=== PATIENT | male | born 1975 | race Caucasian/White ===

== ENCOUNTER 2023-02-16 13:05 | Inpatient (IN) | payer OTHER ==
[~2023-02-16] VITALS: Ht 172.7 cm; Wt 84.1 kg
[2023-02-16 13:57] LABS: BASOPHILS % (AUTO) 0.3 % (0.0-2.0); EOSINOPHILS # (AUTO) 0.6 K/uL (0.0-0.7); EOSINOPHILS % (AUTO) 12.2 % (0.0-6.0); HEMATOCRIT 42 % (39-51); HEMOGLOBIN 13.7 g/dL (13.5-17.5); LYMPHOCYTES # (AUTO) 1.4 K/uL (0.8-4.8); LYMPHOCYTES % (AUTO) 27.3 % (20.0-44.0); MEAN CORPUSCULAR HEMOGLOBIN 27 PG (26.0-33.0); MEAN CORPUSCULAR HGB CONC 33 g/dl (31.0-36.0); MEAN CORPUSCULAR VOLUME 81 fL (80-96); MONOCYTES # (AUTO) 0.5 K/uL (0.1-1.30); MONOCYTES % (AUTO) 9.5 % (2.0-12.0); NEUTROPHILS # (AUTO) 2.7 K/uL (1.8-8.9); NEUTROPHILS % (AUTO) 50.7 % (43.0-81.0); PLATELET COUNT (AUTO) 230 K/uL (150-450); RED BLOOD CELL COUNT(AUTO) 5.16 MIL/uL (4.5-6.0); WHITE BLOOD COUNT (AUTO) 5.2 K/uL (4.3-11.0)
[2023-02-16] MEDS ORDERED: ZOLP5TAB2 PO (13:57)
[2023-02-16] MEDS ORDERED: ACET-2605 PO (13:57)
[2023-02-16] MEDS ORDERED: DEXT15DR6 EACHEYE ×2 (13:57)
[2023-02-16] MEDS ORDERED: ACET-868 PO (13:57)
[2023-02-16] MEDS ORDERED: DOCU100T2 PO (13:58)
[2023-02-16] MEDS ORDERED: LEVE500T20 PO (13:58)
[2023-02-16] MEDS ORDERED: FENO145T PO (13:58)
[2023-02-16] MEDS ORDERED: MULT-213 PO (13:58)
[2023-02-16] MEDS ORDERED: ONDA4TAB5 PO (13:58)
[2023-02-16] MEDS ORDERED: MELA3TAB41 PO (13:58)
[2023-02-16] MEDS ORDERED: LORA-259 PO (13:58)
[2023-02-16] MEDS ORDERED: METO25TA4 PO (13:58)
[2023-02-16] MEDS ORDERED: AMLO10TA4 PO (13:58)
[2023-02-16] MEDS ORDERED: NA P133E RC (13:58)
[2023-02-16] MEDS ORDERED: QUET200T PO (13:58)
[2023-02-16] MEDS ORDERED: BENZ1TAB7 PO (13:58)
[2023-02-16] MEDS ORDERED: CHOL200059 PO (13:58)
[2023-02-16] MEDS ORDERED: MAGN400O6 PO (13:58)
[2023-02-16] MEDS ORDERED: CALC-494 PO (13:58)
[2023-02-16 14:13] LABS: APPEARANCE,URINE CLEAR (CLEAR); BILIRUBIN,URINE NEGATIVE (NEGATIVE); BLOOD, URINE NEGATIVE Ery/uL (NEGATIVE); COLOR,URINE YELLOW (YELLOW); KETONES,URINE NEGATIVE (NEGATIVE); LEUKOCYTE ESTERASE ,URINE NEGATIVE (NEGATIVE); NITRITE, URINE NEGATIVE (NEGATIVE); PROTEIN,URINE NEGATIVE (NEGATIVE); UGLUCOSE NEGATIVE (NEGATIVE); UROBILINOGEN,URINE 0.2 EU/dL (0.2)
[2023-02-16 14:22] LABS: ALBUMIN 4.5 g/dL (3.4-5.0); BILIRUBIN,DIRECT 0.1 mg/dL (0.0-0.2); BILIRUBIN,TOTAL 0.3 mg/dL (0.2-1.0); CALCIUM, SERUM 9.6 mg/dL (8.5-10.1); CREATININE 0.9 mg/dL (0.6-1.3); POTASSIUM 3.6 mmol/L (3.5-5.1); TOTAL PROTEIN, SERUM 7.9 g/dL (6.4-8.2)
[2023-02-16] MEDS ORDERED: OLANZAPINE 10 MG VIAL IM ONE ×2 (15:27→15:30)
[2023-02-16] MEDS ORDERED: ZOLPIDEM TARTRATE 5 MG TABLET PO PRN ×2 (16:30→17:00)
[2023-02-16] MEDS ORDERED: ACETAMINOPHEN 325 MG TABLET PO PRN ×2 (16:30→17:00)
[2023-02-16] MEDS ORDERED: NA PHOS,M-B/NA PHOS,DI-BA 1 EA ENEMA RC PRN (16:30)
[2023-02-16] MEDS ORDERED: MAGNESIUM HYDROXIDE 30 ML UDC PO PRN ×2 (16:30→17:00)
[2023-02-16] MEDS ORDERED: ACETAMINOPHEN ES 500 MG TABLET PO PRN (16:30)
[2023-02-16] MEDS ORDERED: Z GUARD REMEDY 4 OZ OINT TP PRN (17:00)
[2023-02-16] MEDS ORDERED: ONDANSETRON HCL/PF 4 MG/2 ML VIAL IVP PRN (17:00)
[2023-02-16] MEDS ORDERED: CALCIUM CARBONATE 500 MG TAB.CHEW PO PRN (17:00)
[2023-02-16] MEDS ORDERED: IV NS 0.9% 1,000 ML IV PRN (17:00)
[2023-02-16] MEDS ORDERED: MAG HYDROX/AL HYDROX/SIMETH 30 ML UDC PO PRN (17:00)
[2023-02-16 17:33] LABS: AMPHETAMINE, URINE NEGATIVE (NEGATIVE); BARBITURATE, URINE NEGATIVE (NEGATIVE); BENZODIAZEPINE, URINE NEGATIVE (NEGATIVE); CANNABINOID, URINE NEGATIVE (NEGATIVE); COCCAINE, URINE NEGATIVE (NEGATIVE); OPIATE, URINE NEGATIVE (NEGATIVE); PHENCYCLIDINE SCREEN,URINE NEGATIVE (NEGATIVE)
[2023-02-16] MEDS: LORAZEPAM 1 MG TABLET PO SCH (18:35)
[2023-02-16] MEDS: BENZTROPINE MESYLATE (1 MG) 1 MG TABLET PO SCH (18:35)
[2023-02-16] MEDS: QUETIAPINE FUMARATE 100 MG TABLET PO SCH (18:36)
[2023-02-16 20:00] VITALS: BP 102/79; TEMP 97.3; O2SAT 92
[2023-02-16] MEDS: LEVETIRACETAM (250 MG) 250 MG TABLET PO SCH (20:57)
[2023-02-16] MEDS: DOCUSATE SODIUM 100 MG CAPSULE PO SCH (20:57)
[2023-02-16] MEDS: POLYVINYL ALCOHOL 15 ML BOTTLE EACHEYE SCH (21:00)
[2023-02-17 06:49] LABS: BASOPHILS % (AUTO) 1.1 % (0.0-2.0); EOSINOPHILS # (AUTO) 0.7 K/uL (0.0-0.7); EOSINOPHILS % (AUTO) 16.1 % (0.0-6.0); HEMATOCRIT 38 % (39-51); HEMOGLOBIN 12.8 g/dL (13.5-17.5); LYMPHOCYTES # (AUTO) 1.4 K/uL (0.8-4.8); LYMPHOCYTES % (AUTO) 33.7 % (20.0-44.0); MEAN CORPUSCULAR HEMOGLOBIN 27 PG (26.0-33.0); MEAN CORPUSCULAR HGB CONC 34 g/dl (31.0-36.0); MEAN CORPUSCULAR VOLUME 80 fL (80-96); MONOCYTES # (AUTO) 0.4 K/uL (0.1-1.30); MONOCYTES % (AUTO) 9.2 % (2.0-12.0); NEUTROPHILS # (AUTO) 1.7 K/uL (1.8-8.9); NEUTROPHILS % (AUTO) 39.9 % (43.0-81.0); PLATELET COUNT (AUTO) 208 K/uL (150-450); RED BLOOD CELL COUNT(AUTO) 4.75 MIL/uL (4.5-6.0); WHITE BLOOD COUNT (AUTO) 4.1 K/uL (4.3-11.0)
[2023-02-17 07:01] LABS: CALCIUM, SERUM 9.2 mg/dL (8.5-10.1); CREATININE 0.9 mg/dL (0.6-1.3); MAGNESIUM 1.9 mg/dL (1.8-2.4); PHOSPHORUS 3.7 mg/dL (2.5-4.9); POTASSIUM 3.4 mmol/L (3.5-5.1)
[2023-02-17 08:00] VITALS: BP 115/81; TEMP 98.2; O2SAT 97
[2023-02-17] MEDS: LORAZEPAM 1 MG TABLET PO SCH ×2 (08:19→16:37)
[2023-02-17] MEDS: LEVETIRACETAM (250 MG) 250 MG TABLET PO SCH ×2 (08:20→21:22)
[2023-02-17] MEDS: QUETIAPINE FUMARATE 100 MG TABLET PO SCH ×3 (08:20→16:37)
[2023-02-17] MEDS: BENZTROPINE MESYLATE (1 MG) 1 MG TABLET PO SCH ×2 (08:20→16:37)
[2023-02-17] MEDS: FENOFIBRATE NANOCRYS (145 MG) 145 MG TABLET PO SCH (08:20)
[2023-02-17] MEDS: CHOLECALCIFEROL 1,000 UNIT TABLET (VIT D3) PO SCH (08:20)
[2023-02-17] MEDS: DOCUSATE SODIUM 100 MG CAPSULE PO SCH ×2 (08:20→21:22)
[2023-02-17] MEDS: AMLODIPINE BESYLATE 10 MG TABLET PO SCH (08:20)
[2023-02-17] MEDS: POLYVINYL ALCOHOL 15 ML BOTTLE EACHEYE SCH ×2 (08:23→21:23)
[2023-02-17] MEDS: MULTIVIT W/MINERALS 1 TAB TABLET PO SCH (08:23)
[2023-02-17] MEDS: METOPROLOL SUCCINATE 25 MG TAB.SR.24H PO SCH (08:24)
[2023-02-17] MEDS ORDERED: POTASSIUM CHLORIDE 20 MEQ TAB.PRT.SR PO SCH (11:30)
[2023-02-17 16:00] VITALS: BP 117/81; TEMP 98.4; O2SAT 98
[2023-02-17 20:00] VITALS: BP 102/77; TEMP 97.8; O2SAT 98
[2023-02-18 06:17] LABS: BASOPHILS # (AUTO) 0.1 K/uL (0.0-0.2); BASOPHILS % (AUTO) 1.2 % (0.0-2.0); EOSINOPHILS # (AUTO) 0.6 K/uL (0.0-0.7); EOSINOPHILS % (AUTO) 14.6 % (0.0-6.0); HEMATOCRIT 40 % (39-51); HEMOGLOBIN 13.1 g/dL (13.5-17.5); LYMPHOCYTES # (AUTO) 1.3 K/uL (0.8-4.8); MEAN CORPUSCULAR HEMOGLOBIN 27 PG (26.0-33.0); MEAN CORPUSCULAR HGB CONC 33 g/dl (31.0-36.0); MEAN CORPUSCULAR VOLUME 80 fL (80-96); MONOCYTES # (AUTO) 0.4 K/uL (0.1-1.30); MONOCYTES % (AUTO) 10.2 % (2.0-12.0); NEUTROPHILS # (AUTO) 1.9 K/uL (1.8-8.9); PLATELET COUNT (AUTO) 213 K/uL (150-450); RED BLOOD CELL COUNT(AUTO) 4.96 MIL/uL (4.5-6.0); RED CELL DISTRIBUTION WIDTH 13.1 % (11.5-15.0); WHITE BLOOD COUNT (AUTO) 4.3 K/uL (4.3-11.0)
[2023-02-18 07:00] VITALS: BP 114/85; TEMP 97.7; O2SAT 99
[2023-02-18 07:52] LABS: CALCIUM, SERUM 9.2 mg/dL (8.5-10.1); CREATININE 0.9 mg/dL (0.6-1.3); POTASSIUM 3.8 mmol/L (3.5-5.1)
[2023-02-18] MEDS: MULTIVIT W/MINERALS 1 TAB TABLET PO SCH (09:21)
[2023-02-18] MEDS: CHOLECALCIFEROL 1,000 UNIT TABLET (VIT D3) PO SCH (09:21)
[2023-02-18] MEDS: BENZTROPINE MESYLATE (1 MG) 1 MG TABLET PO SCH ×2 (09:21→17:50)
[2023-02-18] MEDS: LORAZEPAM 1 MG TABLET PO SCH ×2 (09:21→17:50)
[2023-02-18] MEDS: LEVETIRACETAM (250 MG) 250 MG TABLET PO SCH ×2 (09:21→20:17)
[2023-02-18] MEDS: METOPROLOL SUCCINATE 25 MG TAB.SR.24H PO SCH (09:22)
[2023-02-18] MEDS: FENOFIBRATE NANOCRYS (145 MG) 145 MG TABLET PO SCH (09:22)
[2023-02-18] MEDS: QUETIAPINE FUMARATE 100 MG TABLET PO SCH ×3 (09:22→17:50)
[2023-02-18] MEDS: DOCUSATE SODIUM 100 MG CAPSULE PO SCH ×2 (09:22→20:17)
[2023-02-18] MEDS: AMLODIPINE BESYLATE 10 MG TABLET PO SCH (09:23)
[2023-02-18] MEDS: POLYVINYL ALCOHOL 15 ML BOTTLE EACHEYE SCH ×2 (09:23→20:18)
[2023-02-18 16:00] VITALS: BP 98/79; TEMP 97.6; O2SAT 98
[2023-02-18 20:00] VITALS: BP 93/80; TEMP 97.5; O2SAT 96
[2023-02-19 07:30] VITALS: BP 103/81; TEMP 97.7; O2SAT 96
[2023-02-19] MEDS: DOCUSATE SODIUM 100 MG CAPSULE PO SCH ×2 (08:27→20:28)
[2023-02-19] MEDS: MULTIVIT W/MINERALS 1 TAB TABLET PO SCH (08:27)
[2023-02-19] MEDS: CHOLECALCIFEROL 1,000 UNIT TABLET (VIT D3) PO SCH (08:27)
[2023-02-19] MEDS: LORAZEPAM 1 MG TABLET PO SCH ×2 (08:27→16:46)
[2023-02-19] MEDS: LEVETIRACETAM (250 MG) 250 MG TABLET PO SCH ×2 (08:27→20:28)
[2023-02-19] MEDS: QUETIAPINE FUMARATE 100 MG TABLET PO SCH ×3 (08:28→16:46)
[2023-02-19] MEDS: AMLODIPINE BESYLATE 10 MG TABLET PO SCH (08:28)
[2023-02-19] MEDS: METOPROLOL SUCCINATE 25 MG TAB.SR.24H PO SCH (08:30)
[2023-02-19] MEDS: BENZTROPINE MESYLATE (1 MG) 1 MG TABLET PO SCH ×2 (08:39→16:46)
[2023-02-19] MEDS: FENOFIBRATE NANOCRYS (145 MG) 145 MG TABLET PO SCH (08:46)
[2023-02-19] MEDS: POLYVINYL ALCOHOL 15 ML BOTTLE EACHEYE SCH ×2 (09:17→20:28)
[2023-02-19 20:00] VITALS: BP 106/76; TEMP 97.8; O2SAT 96
[2023-02-20 08:00] VITALS: BP 108/76; TEMP 97.3; O2SAT 99
[2023-02-20] MEDS: AMLODIPINE BESYLATE 10 MG TABLET PO SCH (09:00)
[2023-02-20] MEDS: LORAZEPAM 1 MG TABLET PO SCH ×2 (09:23→17:50)
[2023-02-20] MEDS: FENOFIBRATE NANOCRYS (145 MG) 145 MG TABLET PO SCH (09:24)
[2023-02-20] MEDS: LEVETIRACETAM (250 MG) 250 MG TABLET PO SCH ×2 (09:24→21:36)
[2023-02-20] MEDS: CHOLECALCIFEROL 1,000 UNIT TABLET (VIT D3) PO SCH (09:24)
[2023-02-20] MEDS: METOPROLOL SUCCINATE 25 MG TAB.SR.24H PO SCH (09:24)
[2023-02-20] MEDS: MULTIVIT W/MINERALS 1 TAB TABLET PO SCH (09:25)
[2023-02-20] MEDS: DOCUSATE SODIUM 100 MG CAPSULE PO SCH ×2 (09:25→21:36)
[2023-02-20] MEDS: BENZTROPINE MESYLATE (1 MG) 1 MG TABLET PO SCH ×2 (09:25→17:50)
[2023-02-20] MEDS: QUETIAPINE FUMARATE 100 MG TABLET PO SCH ×3 (09:26→17:50)
[2023-02-20] MEDS: POLYVINYL ALCOHOL 15 ML BOTTLE EACHEYE SCH ×2 (09:27→21:36)
[2023-02-20 16:00] VITALS: BP 98/57; TEMP 97.4; O2SAT 97
[2023-02-20 20:00] VITALS: BP 95/62; TEMP 97.7; O2SAT 96
[2023-02-21 08:00] VITALS: BP 98/75; TEMP 97.9; O2SAT 98
[2023-02-21] MEDS: FENOFIBRATE NANOCRYS (145 MG) 145 MG TABLET PO SCH (08:43)
[2023-02-21] MEDS: BENZTROPINE MESYLATE (1 MG) 1 MG TABLET PO SCH ×2 (08:43→16:12)
[2023-02-21] MEDS: MULTIVIT W/MINERALS 1 TAB TABLET PO SCH (08:43)
[2023-02-21] MEDS: QUETIAPINE FUMARATE 100 MG TABLET PO SCH ×3 (08:43→16:17)
[2023-02-21] MEDS: CHOLECALCIFEROL 1,000 UNIT TABLET (VIT D3) PO SCH (08:43)
[2023-02-21] MEDS: LEVETIRACETAM (250 MG) 250 MG TABLET PO SCH ×2 (08:43→21:05)
[2023-02-21] MEDS: DOCUSATE SODIUM 100 MG CAPSULE PO SCH ×2 (08:43→21:05)
[2023-02-21] MEDS: LORAZEPAM 1 MG TABLET PO SCH ×2 (08:45→16:12)
[2023-02-21] MEDS: AMLODIPINE BESYLATE 10 MG TABLET PO SCH (08:45)
[2023-02-21] MEDS: POLYVINYL ALCOHOL 15 ML BOTTLE EACHEYE SCH ×2 (08:45→21:05)
[2023-02-21] MEDS: METOPROLOL SUCCINATE 25 MG TAB.SR.24H PO SCH (08:45)
[2023-02-21 16:00] VITALS: BP 105/76; TEMP 97.5; O2SAT 98
[2023-02-21 20:00] VITALS: BP 106/78; TEMP 97.7; O2SAT 98
[2023-02-22 08:00] VITALS: BP 119/84; TEMP 98.3; O2SAT 98
[2023-02-22] MEDS: QUETIAPINE FUMARATE 100 MG TABLET PO SCH ×3 (08:37→16:55)
[2023-02-22] MEDS: CHOLECALCIFEROL 1,000 UNIT TABLET (VIT D3) PO SCH (08:37)
[2023-02-22] MEDS: LORAZEPAM 1 MG TABLET PO SCH ×2 (08:37→16:55)
[2023-02-22] MEDS: LEVETIRACETAM (250 MG) 250 MG TABLET PO SCH ×2 (08:37→20:10)
[2023-02-22] MEDS: DOCUSATE SODIUM 100 MG CAPSULE PO SCH ×2 (08:38→20:10)
[2023-02-22] MEDS: BENZTROPINE MESYLATE (1 MG) 1 MG TABLET PO SCH ×2 (08:38→16:55)
[2023-02-22] MEDS: MULTIVIT W/MINERALS 1 TAB TABLET PO SCH (08:38)
[2023-02-22] MEDS: AMLODIPINE BESYLATE 10 MG TABLET PO SCH (08:38)
[2023-02-22] MEDS: FENOFIBRATE NANOCRYS (145 MG) 145 MG TABLET PO SCH (08:38)
[2023-02-22] MEDS: METOPROLOL SUCCINATE 25 MG TAB.SR.24H PO SCH (08:39)
[2023-02-22] MEDS: POLYVINYL ALCOHOL 15 ML BOTTLE EACHEYE SCH ×2 (09:02→20:10)
[2023-02-22 16:00] VITALS: BP 104/73; TEMP 100; O2SAT 99
[2023-02-22 20:00] VITALS: BP 112/74; TEMP 98.2; O2SAT 95
[2023-02-23 07:00] VITALS: BP 100/76; TEMP 98.6; O2SAT 95
[2023-02-23] MEDS: POLYVINYL ALCOHOL 15 ML BOTTLE EACHEYE SCH ×2 (08:42→21:44)
[2023-02-23] MEDS: DOCUSATE SODIUM 100 MG CAPSULE PO SCH ×2 (08:43→21:43)
[2023-02-23] MEDS: QUETIAPINE FUMARATE 100 MG TABLET PO SCH ×3 (08:43→17:24)
[2023-02-23] MEDS: FENOFIBRATE NANOCRYS (145 MG) 145 MG TABLET PO SCH (08:43)
[2023-02-23] MEDS: LORAZEPAM 1 MG TABLET PO SCH ×2 (08:43→17:24)
[2023-02-23] MEDS: CHOLECALCIFEROL 1,000 UNIT TABLET (VIT D3) PO SCH (08:43)
[2023-02-23] MEDS: BENZTROPINE MESYLATE (1 MG) 1 MG TABLET PO SCH ×2 (08:43→17:24)
[2023-02-23] MEDS: MULTIVIT W/MINERALS 1 TAB TABLET PO SCH (08:43)
[2023-02-23] MEDS: LEVETIRACETAM (250 MG) 250 MG TABLET PO SCH ×2 (08:43→21:44)
[2023-02-23] MEDS: AMLODIPINE BESYLATE 10 MG TABLET PO SCH (08:55)
[2023-02-23] MEDS: METOPROLOL SUCCINATE 25 MG TAB.SR.24H PO SCH (08:56)
[2023-02-23 16:00] VITALS: BP 91/71; TEMP 97.5; O2SAT 94
[2023-02-24 08:00] VITALS: BP 100/73; TEMP 98.2; O2SAT 97
[2023-02-24] MEDS: LORAZEPAM 1 MG TABLET PO SCH ×2 (08:46→16:32)
[2023-02-24] MEDS: POLYVINYL ALCOHOL 15 ML BOTTLE EACHEYE SCH ×2 (08:46→20:58)
[2023-02-24] MEDS: MULTIVIT W/MINERALS 1 TAB TABLET PO SCH (08:47)
[2023-02-24] MEDS: AMLODIPINE BESYLATE 10 MG TABLET PO SCH (08:47)
[2023-02-24] MEDS: METOPROLOL SUCCINATE 25 MG TAB.SR.24H PO SCH (08:47)
[2023-02-24] MEDS: DOCUSATE SODIUM 100 MG CAPSULE PO SCH ×2 (08:47→20:58)
[2023-02-24] MEDS: LEVETIRACETAM (250 MG) 250 MG TABLET PO SCH ×2 (08:47→20:58)
[2023-02-24] MEDS: BENZTROPINE MESYLATE (1 MG) 1 MG TABLET PO SCH ×2 (08:47→16:32)
[2023-02-24] MEDS: QUETIAPINE FUMARATE 100 MG TABLET PO SCH ×3 (08:47→16:32)
[2023-02-24] MEDS: CHOLECALCIFEROL 1,000 UNIT TABLET (VIT D3) PO SCH (08:47)
[2023-02-24] MEDS: FENOFIBRATE NANOCRYS (145 MG) 145 MG TABLET PO SCH (08:47)
[2023-02-24 16:00] VITALS: BP 98/52; TEMP 97.6; O2SAT 98
[2023-02-24 19:00] VITALS: BP 104/77; TEMP 97.2; O2SAT 96
[2023-02-24 20:00] VITALS: BP 104/77; TEMP 97.2; O2SAT 96
[2023-02-25 07:30] VITALS: BP 105/71; TEMP 97.9; O2SAT 95
[2023-02-25] MEDS: LORAZEPAM 1 MG TABLET PO SCH ×2 (08:17→16:07)
[2023-02-25] MEDS: CHOLECALCIFEROL 1,000 UNIT TABLET (VIT D3) PO SCH (08:18)
[2023-02-25] MEDS: QUETIAPINE FUMARATE 100 MG TABLET PO SCH ×3 (08:19→16:07)
[2023-02-25] MEDS: LEVETIRACETAM (250 MG) 250 MG TABLET PO SCH ×2 (08:19→21:16)
[2023-02-25] MEDS: DOCUSATE SODIUM 100 MG CAPSULE PO SCH ×2 (08:19→21:16)
[2023-02-25] MEDS: MULTIVIT W/MINERALS 1 TAB TABLET PO SCH (08:19)
[2023-02-25] MEDS: BENZTROPINE MESYLATE (1 MG) 1 MG TABLET PO SCH ×2 (08:19→16:07)
[2023-02-25] MEDS: FENOFIBRATE NANOCRYS (145 MG) 145 MG TABLET PO SCH (08:19)
[2023-02-25] MEDS: METOPROLOL SUCCINATE 25 MG TAB.SR.24H PO SCH (08:20)
[2023-02-25] MEDS: POLYVINYL ALCOHOL 15 ML BOTTLE EACHEYE SCH ×2 (08:47→21:16)
[2023-02-25 20:34] VITALS: BP 92/65; TEMP 97.5; O2SAT 95
[2023-02-26 07:30] VITALS: BP 99/70; TEMP 97.9; O2SAT 97
[2023-02-26] MEDS: METOPROLOL SUCCINATE 25 MG TAB.SR.24H PO SCH ×2 (08:26→08:46)
[2023-02-26] MEDS: MULTIVIT W/MINERALS 1 TAB TABLET PO SCH (08:45)
[2023-02-26] MEDS: BENZTROPINE MESYLATE (1 MG) 1 MG TABLET PO SCH (08:45)
[2023-02-26] MEDS: QUETIAPINE FUMARATE 100 MG TABLET PO SCH ×2 (08:45→14:22)
[2023-02-26] MEDS: DOCUSATE SODIUM 100 MG CAPSULE PO SCH (08:45)
[2023-02-26] MEDS: CHOLECALCIFEROL 1,000 UNIT TABLET (VIT D3) PO SCH (08:45)
[2023-02-26] MEDS: FENOFIBRATE NANOCRYS (145 MG) 145 MG TABLET PO SCH (08:45)
[2023-02-26] MEDS: LORAZEPAM 1 MG TABLET PO SCH (08:45)
[2023-02-26] MEDS: LEVETIRACETAM (250 MG) 250 MG TABLET PO SCH (08:45)
[2023-02-26] MEDS: POLYVINYL ALCOHOL 15 ML BOTTLE EACHEYE SCH (09:00)
[2023-02-26] MEDS ORDERED: METO25TA4 PO (13:01)
[2023-02-26 14:30] VITALS: BP 122/78; TEMP 98; O2SAT 99
== END 2023-02-26 14:39 | DRG 52 ==
LOC: ER 13:05 → MEDSG1 16:33 → MED 16:57
PROVIDERS: ADMIT Nurse Practitioner Acute Care; ATTEND Nurse Practitioner Family
DX: G93.41 Metabolic encephalopathy (principal); F29 Unspecified psychosis not due to a substance or known physiological condition; R62.50 Unspecified lack of expected normal physiological development in childhood; G40.909 Epilepsy, unspecified, not intractable, without status epilepticus; E78.5 Hyperlipidemia, unspecified; I10 Essential (primary) hypertension; F31.9 Bipolar disorder, unspecified
CPT/HCPCS: 36415; 71045-TC; 80048-TC; 80076-TC; 83735-TC; 84100-TC; 85025-TC; 87086-TC; 97110-TC; 97112-TC; 97116-TC; 97530-TC; 97535-TC; A4223; G0378; G0480; J3490; J7030